=== PATIENT | male | born 1935 | race Caucasian/White ===

== ENCOUNTER 2019-12-14 10:24 | Outpatient (CLI) | payer MEDICARE ==
[2019-12-20] MEDS ORDERED: TICAGRELOR 90 MG TABLET ONE (12:49)
[2019-12-20] MEDS ORDERED: HEPARIN 1,000 UNITS/ML, 10ML ONE (12:49)
[2019-12-20] MEDS ORDERED: MIDAZOLAM 1 MG/ML, 5ML ONE (12:49)
[2019-12-20] MEDS ORDERED: BIVALIRUDIN 250 MG ONE (12:49)
[2019-12-20] MEDS ORDERED: LIDOCAINE-MPF 1%, 5ML ONE (12:49)
[2019-12-20] MEDS ORDERED: VERAPAMIL 2.5 MG/ML, 2ML ONE (12:49)
[2019-12-20] MEDS ORDERED: FENTANYL PF 100 MCG/2ML ONE (12:49)
== END 2019-12-14 23:59 | disposition home or self-care (01) ==
LOC: CVU 10:24
PROVIDERS: ATTEND Internal Medicine Cardiovascular Disease
DX: Z01.810 Encounter for preprocedural cardiovascular examination (principal); I08.8 Other rheumatic multiple valve diseases; I65.29 Occlusion and stenosis of unspecified carotid artery
CPT/HCPCS: 93306; 94010; 94726; 94729

== ENCOUNTER 2019-12-20 11:05 | Day surgery (SDC) | payer MEDICARE ==
[~2019-12-20] VITALS: Ht 188 cm; Wt 55.9 kg
[2019-12-20] MEDS ORDERED: FINA5TAB4 PO (11:49)
[2019-12-20] MEDS ORDERED: MAGN400T36 PO (11:49)
[2019-12-20] MEDS ORDERED: CHOL10003 PO (11:49)
[2019-12-20] MEDS ORDERED: ZINC50TA10 PO (11:49)
[2019-12-20] MEDS ORDERED: OMEP-110 PO (11:49)
[2019-12-20] MEDS ORDERED: SODIUM CHLORIDE 0.9% 1,000 ML IV SCH ×2 (11:57→13:27)
[2019-12-20] MEDS ORDERED: SODIUM CHLORIDE 0.9% 1,000 ML IV ONE (12:00)
[2019-12-20] MEDS ORDERED: PLEASE ENTER HEIGHT AND WEIGHT MC SCH (12:00)
[2019-12-20 12:07] VITALS: BP 154/77
[2019-12-20 12:14] LABS: BASOPHILS # (AUTO) 0.02 x10^3/uL (0-0.1); BASOPHILS % (AUTO) 0 % (0-1); EOSINOPHILS # (AUTO) 0.27 x10^3/uL (0-0.4); EOSINOPHILS % (AUTO) 7 % (1-7); LYMPHOCYTES # (AUTO) 0.78 x10^3/uL (1-3.4); LYMPHOCYTES % (AUTO) 21 % (22-44); MD NO; MEAN CORPUSCULAR HEMOGLOBIN 32.4 pg (27.5-34.5); MEAN CORPUSCULAR HGB CONC 33.3 g/dL (33.2-36.2); MEAN CORPUSCULAR VOLUME 97.4 fL (81-97); MEAN PLATELET VOLUME 9.6 fL (7.4-10.4); MONOCYTES # (AUTO) 0.27 x10^3/uL (0.2-0.8); MONOCYTES % (AUTO) 7 % (2-9); NEUTROPHILS # (AUTO) 2.34 x10^3/uL (1.8-6.8); NEUTROPHILS % (AUTO) 64 % (42-75); PLATELET COUNT 114 x10^3/uL (130-400); RED BLOOD COUNT 4.44 x10^6/uL (4.38-5.82); RED CELL DISTRIBUTION WIDTH 14.4 % (9.4-14.8)
[2019-12-20 12:49] LABS: ANION GAP 5 mmol/L (5-15); CALCIUM 8.3 mg/dL (8.5-10.1); CHLORIDE 111 mmol/L (98-107); CREATININE 1.32 mg/dL (0.7-1.3)
[2019-12-20] MEDS ORDERED: LIDOCAINE-MPF 1%, 5ML ONE (13:27)
[2019-12-20] MEDS ORDERED: VERAPAMIL 2.5 MG/ML, 2ML ONE (13:27)
[2019-12-20] MEDS ORDERED: HEPARIN 1,000 UNITS/ML, 10ML ONE (13:27)
== END 2019-12-20 16:14 | disposition home or self-care (01) ==
LOC: CACL 11:05
PROVIDERS: ATTEND Internal Medicine Cardiovascular Disease
DX: I34.0 Nonrheumatic mitral (valve) insufficiency (principal); Z11.59 Encounter for screening for other viral diseases; K22.2 Esophageal obstruction; I27.20 Pulmonary hypertension, unspecified; J44.9 Chronic obstructive pulmonary disease, unspecified; Z79.899 Other long term (current) drug therapy; Z88.2 Allergy status to sulfonamides; Z88.8 Allergy status to other drugs, medicaments and biological substances; Z96.89 Presence of other specified functional implants
CPT/HCPCS: 36415; 80048; 85025; 87635; 93312; 93460; C1769; C1894; J0583; J1644; Q9967; J2250; J3010

== ENCOUNTER 2020-01-04 09:15 | Inpatient (IN) | payer MEDICARE ==
[~2020-01-04] VITALS: Ht 188 cm; Wt 58.3 kg
[~2020-01-04 09:15] MED LIST: CHOL10003 PO; FINA5TAB4 PO; MAGN400T36 PO; OMEP-110 PO; ZINC50TA10 PO
[2020-01-04] MEDS: PLEASE ENTER HEIGHT AND WEIGHT MC SCH ×3 (10:00→21:53)
[2020-01-04] MEDS ORDERED: SODIUM CHLORIDE 0.9% 1,000ML IV SCH (10:00)
[2020-01-04] MEDS ORDERED: ONDANSETRON 2MG/ML, 2ML IV PRN ×2 (10:00→13:30)
[2020-01-04 10:03] LABS: BASOPHILS # (AUTO) 0.02 x10^3/uL (0-0.1); BASOPHILS % (AUTO) 0 % (0-1); EOSINOPHILS # (AUTO) 0.19 x10^3/uL (0-0.4); EOSINOPHILS % (AUTO) 5 % (1-7); LYMPHOCYTES # (AUTO) 0.92 x10^3/uL (1-3.4); LYMPHOCYTES % (AUTO) 23 % (22-44); MD NO; MEAN CORPUSCULAR HEMOGLOBIN 32.6 pg (27.5-34.5); MEAN CORPUSCULAR HGB CONC 33.7 g/dL (33.2-36.2); MEAN PLATELET VOLUME 9.3 fL (7.4-10.4); MONOCYTES # (AUTO) 0.29 x10^3/uL (0.2-0.8); MONOCYTES % (AUTO) 8 % (2-9); NEUTROPHILS # (AUTO) 2.51 x10^3/uL (1.8-6.8); NEUTROPHILS % (AUTO) 64 % (42-75); PLATELET COUNT 111 x10^3/uL (130-400); RED BLOOD COUNT 4.54 x10^6/uL (4.38-5.82); RED CELL DISTRIBUTION WIDTH 14.4 % (9.4-14.8)
[2020-01-04 10:11] LABS: INTERNATIONAL NORMALIZED RATIO 1.07 (0.93-1.1); PROTHROMBIN TIME 11.4 Seconds (9.6-11.5)
[2020-01-04 10:13] LABS: ANION GAP 6 mmol/L (5-15); CALCIUM 9.2 mg/dL (8.5-10.1); CHLORIDE 108 mmol/L (98-107); CREATININE 1.61 mg/dL (0.7-1.3)
[2020-01-04] MEDS ORDERED: FENTANYL PF 250 MCG/5ML ONE (10:28)
[2020-01-04] MEDS ORDERED: EPHEDRINE 50 MG/ML, 1ML ONE (10:41)
[2020-01-04] MEDS ORDERED: DEXAMETHASONE 4 MG/ML, 1ML ONE (10:41)
[2020-01-04] MEDS ORDERED: ROCURONIUM 10 MG/ML,10ML ONE (10:41)
[2020-01-04] MEDS ORDERED: SUCCINYLCHOLINE 20 MG/ML, 10ML ONE (10:41)
[2020-01-04] MEDS ORDERED: SUGAMMADEX 200 MG/2 ML IVPush ONE (10:41)
[2020-01-04] MEDS ORDERED: ONDANSETRON 2MG/ML, 2ML ONE (10:41)
[2020-01-04] MEDS ORDERED: PROPOFOL 10 MG/ML, 20ML ONE (10:41)
[2020-01-04] MEDS ORDERED: CEFAZOLIN 1,000 MG ONE (10:41)
[2020-01-04] MEDS ORDERED: SODIUM CHLORIDE 0.9% 1,000 ML IV SCH (13:07)
[2020-01-04] MEDS ORDERED: hydrALAzine 20 MG/ML, 1ML IVPush PRN (13:30)
[2020-01-04] MEDS ORDERED: LABETALOL 5MG/ML, 20ML IVPush PRN (13:30)
[2020-01-04] MEDS ORDERED: HYDROcodone/APAP 5/325 TABLET PO PRN (13:30)
[2020-01-04] MEDS ORDERED: MAALOX/HYOSCYAMINE/LIDOCAINE 45 ML BTL PO PRN (13:30)
[2020-01-04] MEDS ORDERED: FENTANYL PF 100 MCG/2ML ONE (14:08)
[2020-01-04] MEDS ORDERED: MIDAZOLAM 1 MG/ML, 5ML ONE (14:08)
[2020-01-04] MEDS ORDERED: LIDOCAINE 2%, 20ML ONE (14:08)
[2020-01-04] MEDS ORDERED: PROTAMINE SULFATE 10 MG/ML, 5ML ONE (14:19)
[2020-01-04 14:36] LABS: MEAN CORPUSCULAR HEMOGLOBIN 32.7 pg (27.5-34.5); MEAN CORPUSCULAR HGB CONC 33.3 g/dL (33.2-36.2); MEAN PLATELET VOLUME 9.3 fL (7.4-10.4); PLATELET COUNT 83 x10^3/uL (130-400); RED BLOOD COUNT 3.73 x10^6/uL (4.38-5.82); RED CELL DISTRIBUTION WIDTH 14.4 % (9.4-14.8)
[2020-01-04 14:47] LABS: ALANINE AMINOTRANSFERASE 27 U/L (12-78); ALBUMIN 2.4 g/dL (3.4-5.0); ANION GAP 9 mmol/L (5-15); CALCIUM 7.2 mg/dL (8.5-10.1); CHLORIDE 114 mmol/L (98-107); CREATININE 1.19 mg/dL (0.7-1.3)
[2020-01-04 14:49] LABS: ALKALINE PHOSPHATASE 43 U/L (45-117); BILIRUBIN,TOTAL 0.5 mg/dL (0.2-1.0)
[2020-01-04] MEDS ORDERED: ACETAMINOPHEN 325 MG TABLET ONE (15:04)
[2020-01-04] MEDS: ACETAMINOPHEN 325 MG TABLET PO PRN (15:12)
[2020-01-04 15:54] LABS: BASOPHILS % (AUTO) 0 % (0-1); EOSINOPHILS # (AUTO) 0.02 x10^3/uL (0-0.4); EOSINOPHILS % (AUTO) 0 % (1-7); LYMPHOCYTES % (AUTO) 13 % (22-44); MD MORPH REVIEW ONLY; MONOCYTES # (AUTO) 0.05 x10^3/uL (0.2-0.8); MONOCYTES % (AUTO) 1 % (2-9); NEUTROPHILS # (AUTO) 4.03 x10^3/uL (1.8-6.8); NEUTROPHILS % (AUTO) 86 % (42-75)
[2020-01-04 15:57] LABS: <PLATELET ESTIMATE> DECREASED; <PLT MORPHOLOGY> NORMAL PLT MORPH; <RBC MORPHOLOGY> NORMAL
[2020-01-04] MEDS ORDERED: AMIODARONE 150 MG in DEXTROSE 5% 100 ML IV ONE (16:30)
[2020-01-04] MEDS: FILTER 0.22 MICRON FOR AMIODARONE IV PRN (16:34)
[2020-01-04 17:15] VITALS: BP 124/54
[2020-01-04 17:30] VITALS: BP 142/60
[2020-01-04 18:01] VITALS: BP 127/58
[2020-01-04 20:15] VITALS: BP 138/64
[2020-01-04] MEDS ORDERED: CLOPIDOGREL 300 MG TABLET PO ONE (21:00)
[2020-01-04 21:15] VITALS: BP 134/63
[2020-01-04 22:28] LABS: BASOPHILS # (AUTO) 0.01 x10^3/uL (0-0.1); BASOPHILS % (AUTO) 0 % (0-1); EOSINOPHILS % (AUTO) 0 % (1-7); LYMPHOCYTES # (AUTO) 0.47 x10^3/uL (1-3.4); LYMPHOCYTES % (AUTO) 6 % (22-44); MD NO; MEAN CORPUSCULAR HEMOGLOBIN 32.4 pg (27.5-34.5); MEAN CORPUSCULAR HGB CONC 33.4 g/dL (33.2-36.2); MEAN PLATELET VOLUME 8.8 fL (7.4-10.4); MONOCYTES # (AUTO) 0.49 x10^3/uL (0.2-0.8); MONOCYTES % (AUTO) 7 % (2-9); NEUTROPHILS # (AUTO) 6.61 x10^3/uL (1.8-6.8); NEUTROPHILS % (AUTO) 87 % (42-75); PLATELET COUNT 124 x10^3/uL (130-400); RED BLOOD COUNT 3.68 x10^6/uL (4.38-5.82); RED CELL DISTRIBUTION WIDTH 14.3 % (9.4-14.8)
[2020-01-05 03:30] LABS: BASOPHILS # (AUTO) 0.01 x10^3/uL (0-0.1); BASOPHILS % (AUTO) 0 % (0-1); EOSINOPHILS % (AUTO) 0 % (1-7); LYMPHOCYTES # (AUTO) 0.48 x10^3/uL (1-3.4); LYMPHOCYTES % (AUTO) 7 % (22-44); MD NO; MEAN CORPUSCULAR HEMOGLOBIN 32.6 pg (27.5-34.5); MEAN CORPUSCULAR HGB CONC 33.8 g/dL (33.2-36.2); MEAN PLATELET VOLUME 8.9 fL (7.4-10.4); MONOCYTES % (AUTO) 7 % (2-9); NEUTROPHILS # (AUTO) 6.25 x10^3/uL (1.8-6.8); NEUTROPHILS % (AUTO) 86 % (42-75); PLATELET COUNT 120 x10^3/uL (130-400); RED BLOOD COUNT 3.39 x10^6/uL (4.38-5.82); RED CELL DISTRIBUTION WIDTH 14.6 % (9.4-14.8)
[2020-01-05 03:43] LABS: ALANINE AMINOTRANSFERASE 34 U/L (12-78); ALBUMIN 2.6 g/dL (3.4-5.0); ANION GAP 6 mmol/L (5-15); CALCIUM 7.6 mg/dL (8.5-10.1); CHLORIDE 109 mmol/L (98-107); CREATININE 1.01 mg/dL (0.7-1.3)
[2020-01-05 03:45] LABS: ALKALINE PHOSPHATASE 53 U/L (45-117); BILIRUBIN,TOTAL 0.6 mg/dL (0.2-1.0); TOTAL PROTEIN 5.2 g/dL (6.4-8.2)
[2020-01-05 04:00] VITALS: BP 96/43
[2020-01-05 04:23] LABS: INTERNATIONAL NORMALIZED RATIO 1.11 (0.93-1.1); PROTHROMBIN TIME 11.8 Seconds (9.6-11.5)
[2020-01-05] MEDS ORDERED: SODIUM CHLORIDE 0.9%, 500ML IVBOLUS ONE (06:00)
[2020-01-05] MEDS ORDERED: ASPIRIN 81 MG TABLET EC PO SCH (06:00)
[2020-01-05] MEDS ORDERED: SODIUM CHLORIDE 0.9% 1,000ML IVBOLUS ONE (08:00)
[2020-01-05] MEDS ORDERED: NAPROXEN 250 MG TABLET PO PRN (08:30)
[2020-01-05] MEDS ORDERED: CLOPIDOGREL 75 MG TABLET PO SCH (09:00)
[2020-01-05] MEDS: FINASTERIDE 5 MG TABLET PO SCH (09:31)
[2020-01-05] MEDS: OMEPRAZOLE 20 MG CAPSULE.DR PO SCH (09:31)
[2020-01-05] MEDS: ACETAMINOPHEN 325 MG TABLET PO PRN ×2 (10:53→16:35)
[2020-01-05 12:37] VITALS: BP 80/43
[2020-01-05 12:45] VITALS: BP 87/39
[2020-01-05 12:56] VITALS: BP 82/38
[2020-01-05] MEDS ORDERED: SODIUM CHLORIDE 0.9% 1,000 ML IV SCH (13:30)
[2020-01-05 14:06] VITALS: BP 87/41
[2020-01-05 15:10] VITALS: BP 89/53
[2020-01-06 04:00] VITALS: BP 117/57
[2020-01-06] MEDS: FINASTERIDE 5 MG TABLET PO SCH (09:25)
[2020-01-06] MEDS: OMEPRAZOLE 20 MG CAPSULE.DR PO SCH (09:25)
[2020-01-06 16:22] VITALS: BP 133/74
[2020-01-06] MEDS ORDERED: AMIODARONE 150 MG in DEXTROSE 5% 100 ML IV ONE (17:00)
[2020-01-06] MEDS: FILTER 0.22 MICRON FOR AMIODARONE IV PRN (17:28)
[2020-01-06] MEDS: AMIODARONE 450 MG in DEXTROSE 5% 241 ML IV PRN (17:28)
[2020-01-06 21:56] VITALS: BP 120/70
[2020-01-07 01:53] VITALS: BP 111/68
[2020-01-07] MEDS: FILTER 0.22 MICRON FOR AMIODARONE IV PRN (02:32)
[2020-01-07] MEDS: AMIODARONE 450 MG in DEXTROSE 5% 241 ML IV PRN (02:33)
[2020-01-07 08:40] VITALS: BP 100/61
[2020-01-07] MEDS: FINASTERIDE 5 MG TABLET PO SCH (09:51)
[2020-01-07] MEDS: OMEPRAZOLE 20 MG CAPSULE.DR PO SCH (09:51)
[2020-01-07 12:32] VITALS: BP 105/67
[2020-01-07] MEDS: CLOPIDOGREL 75 MG TABLET PO SCH (12:33)
[2020-01-07] MEDS: AMIODARONE 200 MG TABLET PO SCH ×2 (12:33→20:56)
[2020-01-07 13:31] VITALS: BP 110/51
[2020-01-07 20:53] VITALS: BP 143/77
[2020-01-08 01:20] VITALS: BP 133/73
[2020-01-08 08:24] VITALS: BP 125/74
[2020-01-08] MEDS: AMIODARONE 200 MG TABLET PO SCH ×2 (10:17→20:07)
[2020-01-08] MEDS: FINASTERIDE 5 MG TABLET PO SCH (10:18)
[2020-01-08] MEDS: OMEPRAZOLE 20 MG CAPSULE.DR PO SCH (10:18)
[2020-01-08] MEDS: CLOPIDOGREL 75 MG TABLET PO SCH (10:18)
[2020-01-08 13:18] VITALS: BP 114/65
[2020-01-08 19:52] VITALS: BP 138/66
[2020-01-09 01:08] VITALS: BP 128/67
[2020-01-09 07:38] VITALS: BP 139/80
[2020-01-09] MEDS: AMIODARONE 200 MG TABLET PO SCH ×2 (09:00→10:29)
[2020-01-09] MEDS ORDERED: AMIODARONE 150 MG in DEXTROSE 5% 100 ML IV ONE (10:00)
[2020-01-09] MEDS: FINASTERIDE 5 MG TABLET PO SCH (10:28)
[2020-01-09] MEDS: CLOPIDOGREL 75 MG TABLET PO SCH (10:29)
[2020-01-09] MEDS: OMEPRAZOLE 20 MG CAPSULE.DR PO SCH (10:29)
[2020-01-09 10:37] VITALS: BP 97/65
[2020-01-09 10:47] VITALS: BP 104/69
[2020-01-09] MEDS ORDERED: FILTER 0.22 MICRON ONE (10:48)
[2020-01-09] MEDS: FILTER 0.22 MICRON FOR AMIODARONE IV PRN (10:48)
[2020-01-09 15:47] VITALS: BP 114/65
[2020-01-09 18:41] VITALS: BP 96/59
[2020-01-10 00:40] VITALS: BP 123/75
[2020-01-10 07:27] VITALS: BP 117/73
[2020-01-10] MEDS: AMIODARONE 200 MG TABLET PO SCH (08:18)
[2020-01-10] MEDS: CLOPIDOGREL 75 MG TABLET PO SCH (08:18)
[2020-01-10] MEDS: OMEPRAZOLE 20 MG CAPSULE.DR PO SCH (08:18)
[2020-01-10] MEDS: FINASTERIDE 5 MG TABLET PO SCH (08:19)
[2020-01-10] MEDS ORDERED: AMIO200T42 PO (11:24)
[2020-01-10] MEDS ORDERED: CLOP75TA PO (11:24)
== END 2020-01-10 13:50 | disposition home or self-care (01) | DRG 266 ==
LOC: ORIP 09:15 → EDSTATUS 12:30 → CCU 15:48 → 5SO 01-06 16:16
PROVIDERS: ADMIT Internal Medicine Cardiovascular Disease; ATTEND Internal Medicine Cardiovascular Disease
PROC: 30233R1 Transfusion of Nonautologous Platelets into Peripheral Vein, Percutaneous Approach (ICD-10-PCS; 2020-01-04)
PROC: 0W9D30Z Drainage of Pericardial Cavity with Drainage Device, Percutaneous Approach (ICD-10-PCS; 2020-01-04)
PROC: 0D718ZZ Dilation of Upper Esophagus, Via Natural or Artificial Opening Endoscopic (ICD-10-PCS; 2020-01-04)
PROC: 02UG3JZ Supplement Mitral Valve with Synthetic Substitute, Percutaneous Approach (ICD-10-PCS; principal; 2020-01-04 11:00)
PROC: B246ZZ4 Ultrasonography of Right and Left Heart, Transesophageal (ICD-10-PCS; 2020-01-04 11:00)
PROC: 30233N1 Transfusion of Nonautologous Red Blood Cells into Peripheral Vein, Percutaneous Approach (ICD-10-PCS; 2020-01-05)
DX: I34.0 Nonrheumatic mitral (valve) insufficiency (principal); Z00.6 Encounter for examination for normal comparison and control in clinical research program; I50.33 Acute on chronic diastolic (congestive) heart failure; I31.3 Pericardial effusion (noninflammatory); R64 Cachexia; Z68.1 Body mass index [BMI] 19.9 or less, adult; I95.81 Postprocedural hypotension; Y84.0 Cardiac catheterization as the cause of abnormal reaction of the patient, or of later complication, without mention of misadventure at the time of the procedure; Y92.239 Unspecified place in hospital as the place of occurrence of the external cause; K22.2 Esophageal obstruction; R13.14 Dysphagia, pharyngoesophageal phase; I27.20 Pulmonary hypertension, unspecified; K44.9 Diaphragmatic hernia without obstruction or gangrene; D69.6 Thrombocytopenia, unspecified; K90.0 Celiac disease; N28.9 Disorder of kidney and ureter, unspecified; I95.9 Hypotension, unspecified; I34.1 Nonrheumatic mitral (valve) prolapse; Z20.828 Contact with and (suspected) exposure to other viral communicable diseases; Z80.0 Family history of malignant neoplasm of digestive organs; Z87.19 Personal history of other diseases of the digestive system; Z87.891 Personal history of nicotine dependence
CPT/HCPCS: 33016; 33019; 33418; 36415; 76930; 76937; 80048; 80053; 82962; 83880; 85014; 85018; 85025; 85347; 85610; 86850; 86900; 86923; 87081; 87635; 93005; 93306; 93308; 93312; 93321; 93325; 93355; C1766; C1893; C1894; G0378; J0690; J1100; J2250; J2405; J2704; J2720; J3010; J7060; C1769; J0282; J0330; J7030; J7040; P9016; P9035

== ENCOUNTER → 2020-02-22 | Outpatient (CLI) | payer MEDICARE ==
[~2020-02-22] MED LIST changes: +AMIO200T42 PO; +CLOP75TA PO
== END | disposition home or self-care (01) ==
LOC: CVU 09:34
PROVIDERS: ATTEND Internal Medicine Cardiovascular Disease
DX: Z01.810 Encounter for preprocedural cardiovascular examination (principal); I08.1 Rheumatic disorders of both mitral and tricuspid valves; R06.02 Shortness of breath; I65.29 Occlusion and stenosis of unspecified carotid artery
CPT/HCPCS: 93306; 93356

== ENCOUNTER → 2020-06-20 | Outpatient (CLI) | payer MEDICARE | END | disposition home or self-care (01) | LOC: CVU 09:33 | PROVIDERS: ATTEND Internal Medicine Cardiovascular Disease | DX: Z01.810 Encounter for preprocedural cardiovascular examination (principal); I65.29 Occlusion and stenosis of unspecified carotid artery; I08.1 Rheumatic disorders of both mitral and tricuspid valves | CPT/HCPCS: 93306; 93356 ==

== ENCOUNTER → 2021-01-08 | Outpatient (CLI) | payer MEDICARE | END | disposition home or self-care (01) | LOC: CVU 10:21 | PROVIDERS: ATTEND Internal Medicine Cardiovascular Disease | DX: Z01.810 Encounter for preprocedural cardiovascular examination (principal); I08.1 Rheumatic disorders of both mitral and tricuspid valves; I65.29 Occlusion and stenosis of unspecified carotid artery | CPT/HCPCS: 93306; 93356 ==